=== PATIENT | female | born 1950 | race Caucasian/White ===

== ENCOUNTER 2016-12-05 00:08 | Emergency (ER) | payer MEDICARE, BC ==
--- NOTE | ~2016-12-05 | CR2 ---
[facility] A Service of [facility] RADIOLOGY TEXT RESULTS PATIENT: LIZA YORK LOCATION: [facility] : 48 UNIT #: [id number] AGE: [address]: Car Jane MD SEX: F ORDER DR: [id number] [facility] [address] [place], [place] [address] [id number] MR#: [id number] #: [id number] NAME: LIZA YORK. : 1950 SEX: F STUDY DATE/TIME: 12/05/2016 2:02 UNIT: [facility] ROOM: STUDY DESCRIPTION: CR Abdomen Acute Series Attending Physician: Car Jane Ordering Physician: Lucien Jane M.D. Primary Care Physician: Constance Palomino M.D. MEDICAL IMAGING REPORT This report is preliminary unless electronic signature is present EXAM Acute abdominal series HISTORY Vomiting and abdominal pain x1 week. FINDINGS PA upright view of the chest demonstrates diffuse lung disease with cystic and reticular changes compatible with underlying emphysema and fibrosis. This is predominantly in the upper lobes with some upper lobe retraction. Supine and upright views of the abdomen demonstrates nonobstructive bowel gas pattern. No abnormal masses or calcifications and no organomegaly. Scoliosis lumbar spine. Osseous structures suggest osteopenia. IMPRESSION 1. Diffuse lung disease with evidence of underlying emphysema and fibrosis. 2. Normal nonobstructive bowel gas pattern. 3. Scoliosis and suspected osteopenia. Dictated by... Denice Paul M.D. THIS IS AN ELECTRONICALLY VERIFIED REPORT Denice Paul M.D. at 12/05/2016 10:04 PM DONNIE/laureano TD: 12/05/2016 04:12 JOB #: [id number] MEDICAL IMAGING REPORT [facility] A Service [facility] RADIOLOGY TEXT RESULTS PATIENT: LIZA YORK LOCATION: [facility] : 48 UNIT #: [id number] AGE: [address]: Car Jane MD SEX: F ORDER DR: Page 1 of 1 COPY
[~2016-12-05 00:08] MED LIST: ACETAMINOPHEN650 M1 PO; ALBUTEROL17 GM INH; AMOXICILLIN500 M1 PO; ATIVAN PO; ATIVAN2 M1 PO; ATIVAN2 MG PO; AUGMENTIN; BENZONATATE PO; BIAXIN PO; COLACE PO; FLAGYL PO; FLEXERIL PO; FLEXERIL10 MG PO; FLOMAX0.4 MG PO; FORTEO2.4 ML SQ; HORMONE PATCH; HYDROCODON-ACE1 EAC5 PO; HYDROCODONE; K-DUR10 MEQ; KEFLEX; LEVAQUIN PO; LEVOFLOXACIN500 MG PO; LIDODERM30 EA TOP; LIORESAL10 MG PO; LORAZEPAM; LORCET PO; LORTAB 10/500 T1 TAB PO; MAGIC MOUTHWASH PO; MOBIC15 MG PO; MOTRIN600 M1 PO; NILSTAT PO; NORCO 10-325 TA1 TAB PO; NORCO 10/325 TA1 TAB PO; NYSTATIN5 ML PO; OMEPRAZOLE; PHENERGAN PO; PHENERGAN SUPP25 MG PR; PHENERGAN W/CO120 ML PO; PHENERGAN25 M1 PO; PHENERGAN25 MG PO; PREDNISONE; PREDNISONE PO; PREDNISONE5 MG PO; PRILOSEC PO; PRILOSEC20 MG PO; PROAIR; PROAIR HFA8.5 GM INH; PROMETHAZINE D118 ML PO; ROBAXIN PO; ROBAXIN500 MG PO; SIMVASTATIN10 MG PO; SPIRIVA18 MCG INH; TYLOX 5/500 CAP1 CAP PO; VITAMIN D PO; VITAMIN D50000 UNIT PO; ZANAFLEX PO; ZANAFLEX4 M1 PO; ZITHROMAX PO
[2016-12-05 02:04] LABS: URINE SOURCE CLEAN CATCH
[2016-12-05 02:09] LABS: URINE APPEARANCE CLEAR; URINE BILIRUBIN NEG (NEG); URINE BLOOD 1+ (NEG); URINE COLOR YELLOW; URINE GLUCOSE NEG (NEG); URINE KETONE TRACE (NEG); URINE LEUKOCYTE ESTERASE 1+ (NEG); URINE NITRATE NEG (NEG); URINE PH 5.5 (5-8); URINE PROTEIN NEG (NEG); URINE SPECIFIC GRAVITY 1.013 (1.003-1.035)
[2016-12-05 02:11] LABS: CULTURE INDICATED? YES; URINE BACTERIA AUWI NEG (NEGATIVE); URINE SQUAMOUS EPITHELIAL CELL OCC /[HPF]
[2016-12-05 03:40] LABS: BASOPHIL# 0.1 X10e3 (0-0.3); BASOPHIL% 0.7 % (0-2.5); DIFF IND NO; EOSINOPHIL% 0.1 % (0.0-7.0); HEMATOCRIT 44.9 % (35.0-45.0); LYMPHOCYTE# 1.4 X10e3 (1.0-3.5); LYMPHOCYTE% 12.1 % (17.0-45.0); MEAN CELL VOLUME 95.7 FL (83-96); MEAN CORPUSCULAR HGB CONC 33.4 g/dL (30-36); MEAN PLATELET VOLUME 8.5 FL (6.5-11.5); MONOCYTE# 0.5 X10e3 (0-1.0); NEUTROPHIL# 9.9 X10e3 (1.5-7.1); NEUTROPHIL% 83.1 % (40-75); PLATELET COUNT 376 X10e3 (140-420); RED BLOOD COUNT 4.69 X10e (3.90-5.30); RED CELL DISTRIBUTION WIDTH 12.9 % (11.0-15.5); WHITE BLOOD COUNT 11.9 X10e3 (4.0-10.5)
[2016-12-05 04:07] LABS: ALBUMIN SERUM 4.5 g/dL (3.5-5.0); BILIRUBIN, DIRECT 0.1 mg/dL (0.0-0.2); BILIRUBIN,INDIRECT 0.6 mg/dL (0.0-0.9); BILIRUBIN,TOTAL 0.7 mg/dL (0.2-2.0); CALCIUM SERUM 9.8 mg/dL (8.4-10.2); GLOM FILT RATE Estimated 58.7 mL/min (>60); POTASSIUM 4.1 mmol/L (3.5-5.1); PROTEIN TOTAL SERUM 8.1 g/dL (6.0-8.3)
== END 2016-12-05 05:23 | disposition home or self-care (01) ==
LOC: CED 00:08
PROVIDERS: Emergency Medicine
DX: R11.2 Nausea with vomiting, unspecified (principal); I25.2 Old myocardial infarction; Z90.710 Acquired absence of both cervix and uterus; Z87.891 Personal history of nicotine dependence
CPT/HCPCS: 36415; 74022; 80048; 80076; 81003; 83690; 85025; 87086; 96361; 96374; 96375; 99284; J2270; J2405